=== PATIENT | male | born 1945 | race Caucasian/White ===

== ENCOUNTER 2017-04-10 23:38 | Emergency (ER) | payer MEDICARE, OTHER ==
[~2017-04-10] VITALS: Ht 177.8 cm; Wt 83.2 kg
[2017-04-10 23:41] VITALS: BP 144/82; PULSE 65; RESP 18; O2SAT 99
--- NOTE | 2017-04-10 23:52 | ED.REPORT ---
HPI-Eye Problem Date of Service Apr 10, 2017 ED Provider: Kolton Gaytan MD Pt is a 71 year old male who presents to the ED complaining of right eye pain s/ p getting a alexander metal chip in his eye onset prior to arrival. He states that he was using a power spice grinder with no eye protection when the metal chip went into his eye. Additional symptoms include redness in the right eye. He denies wearing any contact lenses. In the ED triage, his visual acuity was 20/16 bilaterally. Nursing Notes Stated Complaint: R EYE PAIN Chief Complaint: Eye Nursing Notes Reviewed: Yes Allergies: Coded Allergies: Penicillins (Verified Adverse Reaction, Mild, diarrhea, 04/10/17) General Time Seen by MD: 23:51 Chief Complaint Right eye affected Hx Obtained From: Patient Arrived By: Walk-in Sudden in Onset?: Yes Onset Occurred: Just prior to arrival Symptom Duration: Constant Caused by: Foreign body in eye Location: : Eye right Quality: Painful Severity: Current: Mild Severity: Maximum: Moderate Recent Healthcare: No recent doctor visit, No recent hospitalization Similar Sx Previous: No Past Medical History Past Medical History Denies Past Surgical History Denies Ambulatory Status Independent Review of Systems Eyes: Reports: Eye pain right, Redness right Complete sys rev & neg: except as marked. Physical Exam Initial Vital Signs Vital Signs (First) Date Time Temp Pulse Resp B/P Pulse Ox O2 Delivery O2 Flow Rate FiO2 04/10/17 23:41 36.8 65 18 144/82 99 Room Air Initial VS: Reviewed Neck: Supple, Full range of motion Respiratory: No respiratory distress Lymphatic: No lymphadenopathy Extremities: Vascular intact, Neuro intact, No swelling, No tenderness Skin: Warm, Dry, No cyanosis Neurologic: Alert, Oriented, Nonfocal Psychiatric: Mood/affect normal, Behavior normal, Normal thought content Head / Eyes: Normocephalic, PERRL, EOMI Conjunctiva / Sclera: Positive: Injected right Lid inverted and foreign body removed from right eye Small superficial corneal abrasion between 4 o'clock and 6 o'clock General/Constitutional: Awake, Alert Procedures Slit Lamp Exam Anterior chamber quiet and deep Really superficial small corneal abrasion between 4 o'clock and 6 o'clock on cornea Fluorescein uptake Time: 00:59 Procedure Performed by: ED physician Which Eye: Right Dilating Agent & Anesthesia: Anesthesia: Tetracaine Eyelid / Conjunctiva / Sclera: Conjunctiva injected Re-Eval/Medical Decision Source of Hx: Old records Re-Evaluation/Progress #1: Time of Eval: 00:41 Re-Evaluation/Progress Note: Pt rechecked. Added more eye drops for slit lamp procedure. Re-Evaluation/Progress #2: Time of Eval: 00:56 Re-Evaluation/Progress Note: Pt rechecked. Performed slit lamp procedure. Discussed plan for discharge. Patient understands and agrees with plan. F/U instructions and RTER warnings given. All questions addressed at this time. Counseled Regarding: Diagnosis, Lab results, Need for follow-up, When/why to return to ED Discharge & Departure Primary Impression: Foreign body in conjunctival sac, right eye, initial encounter Disposition: Home Discharge Condition All VS Reviewed: Yes Condition: Stable Patient Instructions: Corneal Abrasion (ED) Additional Instructions: Emergency department course included interview and examination. We removed a small foreign body from the right eye, the foreign body was located under the eyelid. There is a very superficial associated corneal abrasion. Apply gentamycin ointment every 6-8 hours and expect that symptoms of eye irritation and foreign body sensation should be completely resolved within 24 hours. One sensation resolved, gentamycin can be stopped. Return emergency Department for increasing eye pain prior to discharge from eye. Call for ophthalmology follow- up if symptoms have not resolved in 24 hours. Tetanus booster was given today, this should be good for 10 years. Ophthalmalogist, Dr. Karen Salcedo Referrals: Fredi Gamez MD (PCP) Karen Salcedo MD Scribe Attestation Portions of this note were transcribed by Jaci Dasilva. I, Dr. Gaytan, personally performed the history, physical exam and medical decision-making; I reviewed and confirmed the accuracy of the information in the transcribed note. copies to: Fredi Gamez MD, Donald L MD Apr 10, 2017 23:52 Jaci Dasilva Apr 10, 2017 23:59
[2017-04-10] MEDS ORDERED: Fluorescein 0.6 mg Ophthalmic Strip RIGHT_EYE ONE (23:55)
[2017-04-10] MEDS ORDERED: Tetracaine 0.5% 4 mL Ophthalmic Solution RIGHT_EYE ONE (23:55)
[2017-04-10] MEDS ORDERED: 0.9% Sodium Chloride Inhalation Solution RIGHT_EYE ONE (23:55)
[2017-04-11] MEDS ORDERED: TdaP Vaccine 0.5 mL Inj IM ONE
[2017-04-11] MEDS ORDERED: _Erythromycin 0.5% Oph Oint 3.5 gm AFFECT_EYE SCH (08:30)
== END 2017-04-11 01:40 | disposition home or self-care (01) ==
LOC: SED 23:44
DX: T15.11XA Foreign body in conjunctival sac, right eye, initial encounter (principal); Y93.89 Activity, other specified; Y99.8 Other external cause status; Y92.008 Other place in unspecified non-institutional (private) residence as the place of occurrence of the external cause; Z23 Encounter for immunization; I48.91 Unspecified atrial fibrillation; Z88.0 Allergy status to penicillin